=== PATIENT | male | born 1995 | race American Indian/Alaskan Native ===

== ENCOUNTER 2016-11-06 21:35 | Emergency (ER) | payer OTHER ==
[2016-11-06 21:51] VITALS: BP 145/89
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
== END 2016-11-06 22:39 | disposition home or self-care (01) ==
LOC: DL.ED 21:35
DX: S53.402A Unspecified sprain of left elbow, initial encounter (principal); F17.210 Nicotine dependence, cigarettes, uncomplicated; Z98.890 Other specified postprocedural states; X50.1XXA Overexertion from prolonged static or awkward postures, initial encounter
CPT/HCPCS: 73080-LT; 99283

== ENCOUNTER 2020-10-22 11:32 | Emergency (ER) | payer MEDICAID, OTHER ==
[2020-10-22 11:53] VITALS: BP 142/76; PULSE 87
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
--- NOTE | 2020-10-22 13:58 | CR ---
EXAMINATION: Knee 3V Rt SEX: Male AGE: 25 years CLINICAL HISTORY: 25-year-old male complaining of Right knee swelling/pain. Interpretation: Abnormal. Pronounced prepatellar and lateral, juxta-articular, soft tissue swelling (STS) right knee. No foreign bodies or inflammatory periostitis. No joint effusion. Homogeneous normal bone density. *No sign of right knee fracture, dislocation or radiopaque loose joint body. Asymmetric bony eburnation tibial plateau medially symmetric knee joint spacing. No other arthritic changes.
[2020-10-22 14:03] LABS: ANION GAP 13.4 mEq/L (7-13); CHLORIDE,CL 103 mmol/L (98-107); SODIUM,NA 140 mmol/L (136-145)
== END 2020-10-22 16:30 | disposition home or self-care (01) ==
LOC: DL.ED 11:32
DX: L03.115 Cellulitis of right lower limb (principal); Z72.0 Tobacco use
CPT/HCPCS: 36415; 73562; 80053; 83605; 85025; 87040; 96365; 96366; 99283; J3370; J7040